=== PATIENT | male | born 1980 | race Caucasian/White ===

== ENCOUNTER 2016-05-23 23:35 | Emergency (ER) | payer SELFPAY ==
[2016-05-23] MEDS ORDERED: ALBUTEROL SULFATE 8.5 GM HFA INHALER INH SCH (23:45)
[2016-05-24 00:22] VITALS: RESP 20; TEMP 98.4
--- NOTE | 2016-05-24 00:27 | PDOC ---
General Adult HPI - General Chief Complaint: General Medical Stated Complaint: Needs rx refill, albuterol Date Seen by Provider: 05/24/16 Time Seen by Provider: 00:04 - History of Present Illness Initial Comment: Patient is a very nice 36-year-old gentleman who presents to the emergency department wanting to get a albuterol inhaler. Apparently he's regularly depending upon his inhaler and he ran out tonight and he is afraid that he may get short of breath by morning and wanted to get an inhaler before it was too late. He does not have any active asthma currently is not wheezing currently but just needs an inhaler. He has had problems with asthma exacerbations in the past. Have you received a tetanus shot in the past 10 years?: Unknown - Patient Home Medications Home Medications: Home Medications Albuterol Sulfate [Ventolin Hfa] 1 - 2 puff INH Q4-6H #1 puff 11/25/14 Albuterol [Ventolin] 2 inh INH Q4H PRN PRN #1 aerosol 05/24/16 - Patient Allergies Allergies/Adverse Reactions: Allergies Allergy/AdvReac Type Severity Reaction Status Date / Time cat dander Allergy ITCHING Verified 05/23/16 23:56 Past Medical History - heen HEENT History: Denies History Cardiovascular History: Denies History Respiratory History: Asthma Gastrointestinal History: Denies History Genitourinary History: Denies History Endocrine History: Denies History Musculoskeletal History: Denies History Prosthesis or Implant: No Neurological History: Denies History Blood Disorders: Denies History Psychiatric History: Denies History History of Sexually Transmitted Diseases: No Cancer History: Denies History In Past Year Been Physically Harmed or Verbally Threatened: No History of MDRO: No History of Other Communicable Diseases: No Tobacco Use: Never Smoker Alcohol Use: Rarely Substance Use Type: None Previous Surgical History: No Significant Family History: No pertinent family hx Past Medical History Reviewed: Reviewed - No Changes ROS - Limitations ROS Limitations: No Limitations Constitution: REPORTS: Denies Symptoms Cardiovascular: REPORTS: Denies Cardiac Symptoms Respiratory: REPORTS: Denies Resp Symptoms Neurological: REPORTS: Denies Neuro Symptoms General Adult Exam - General Appearance General Appearance: POSITIVE: Alert, Cooperative, No Acute Distress - HEENT HEENT: POSITIVE: Head Inspection Nml - Respiratory Respiratory: POSITIVE: No Respiratory Distress, Breath Sounds Normal - Cardiovascular Cardiovascular: POSITIVE: Regular Rate & Rhythm, No Murmur - Abdomen Abdomen: Soft: (All Quadrants), Normal Bowel Sounds: (All Quadrants), Denies Tenderness: (All Quadrants) General Adult Progress - Patient's Progress MDM / ED Course: This patient presents emergency department without substantial symptoms at all. He wants to get a refill of his inhaler. We will go ahead and give him a refill. Patient Care Time - Estimated PCT Patient Care Time (In Minutes): 10 Vital Signs - VS Reviewed Vital Signs Reviewed: Yes Discharge Clinical Impression: Medication refill Discharge Disposition: Discharged to Home Condition: Good Prescriptions / Orders: Albuterol [Ventolin] 2 inh INH Q4H PRN PRN #1 aerosol PRN Reason: Wheezing Patient Instructions Given at Discharge: Asthma (ED) Additional Instructions: Establish care with a primary care provider for management of your asthma Return with any increased dyspnea shortness of breath wheezing or other concerns Use your albuterol inhaler as directed Follow Up With: NONE,NONE [Primary Care Provider] -
== END 2016-05-24 00:13 | disposition home or self-care (01) ==
LOC: ER 23:35
DX: Z76.0 Encounter for issue of repeat prescription (principal)
CPT/HCPCS: 99282